=== PATIENT | female | born 1980 | race Caucasian/White ===

== ENCOUNTER → 2020-04-10 | Outpatient (CLI) | payer OTHER ==
[2015-11-04 08:24] VITALS: BP 160/107
[~2020-04-10] MED LIST: CYCL-331 PO; IOHEXOL 240 MG/ML 50ML VIAL. ONE; IOHEXOL 240 MG/ML 50ML VIAL. PO ONE; IOHEXOL 300 MG/ML 75 ML VIAL. IV ONE
--- NOTE | 2020-04-10 12:30 | RAD ---
EXAM: CT Abdomen and Pelvis with IV contrast INDICATION: Reason: LOWER ABD PAIN WITH NAUSEA FOR 1 WEEK, 75MLS OMNI 300 TECHNIQUE: Multi-detector row CT images were acquired from the lung bases through the abdomen and pel vis with the use of IV contrast. Sagittal and coronal images were acquired from the transaxial data. All CT scans performed at this facility utilize dose optimization techniques as appropriate to the ex am, including the following: Automated exposure control and adjustment of the mA and/or KV according to patient size (this includes techniques or standardized protocols for targeted exams where dose is indication/reason for exam). IV CONTRAST: Administered ORAL CONTRAST: Administered COMPARISON: None FINDINGS: LOWER CHEST: Unremarkable LIVER: Unremarkable BILIARY SYSTEM: Gallbladder is unremarkable. Bile ducts are not dilated. PANCREAS: Unremarkable SPLEEN: Unremarkable ADRENALS: Unremarkable KIDNEYS & URETERS: Unremarkable BLADDER: Unremarkable REPRODUCTIVE ORGANS: In the left adnexa is a 5.4 x 5.7 cm mixed fatty, soft tissue noncalcified mass compatible with a benign cystic teratoma. There is a normal-appearing retroflexed uterus. The right ovary is not well seen. GASTROINTESTINAL: The stomach, small bowel, and colon are unremarkable. The appendix is normal. MESENTERY/PERITONEUM/RETROPERITONEUM: Unremarkable VASCULAR: Unremarkable LYMPH NODES: No adenopathy OSSEOUS & SOFT TISSUES: Intraosseous hemangioma at L3 measuring 2 cm is present. IMPRESSION: Nonvisualized right ovary with a small amount of pelvic free fluid but an approximately 6 cm left adn exal mass compatible with a benign cystic teratoma is present. If there is any concern for torsion, u ltrasound could be pursued in further evaluation. Electronically signed by: Brayan Rod MD (04/10/2020 12:28 PM) [id number]
== END ==
LOC: CT 07:39
PROVIDERS: ATTEND Nurse Practitioner Family
DX: R10.30 Lower abdominal pain, unspecified (principal)
CPT/HCPCS: 74177; Q9966; Q9967

== ENCOUNTER 2021-02-10 20:08 | Emergency (ER) | payer OTHER ==
[~2021-02-10] VITALS: Ht 172.7 cm; Wt 136.0 kg
[~2021-02-10 20:08] MED LIST changes: -CYCL-331 PO; +CYCL10TA19 PO; -IOHEXOL 240 MG/ML 50ML VIAL. ONE; -IOHEXOL 240 MG/ML 50ML VIAL. PO ONE; -IOHEXOL 300 MG/ML 75 ML VIAL. IV ONE
--- NOTE | 2021-02-10 20:45 | RAD ---
Exam: Chest one view INDICATION: Short of breath, Covid post TECHNIQUE: Frontal view of the chest Comparisons: None FINDINGS: The cardiomediastinal silhouette and pulmonary vessels are within normal limits. Subtle patchy bibasilar airspace disease. No pleural effusion. IMPRESSION: Subtle bibasilar airspace disease. This may be infectious or inflammatory in etiology. Electronically signed by: Maggie Bruno MD (02/10/2021 8:42 PM) YAYA
[2021-02-10 21:27] VITALS: BP 144/94
--- NOTE | 2021-02-10 21:35 | PHYS DOC ---
Past History Past Medical History: Depression, GERD, Hypertension, Other Past Surgical History: , Other Additional Past Surgical Histo: ablation, partial hysterectomy Alcohol Use: None Drug Use: None General Adult EDM: Chief Complaint: NAUSEA/VOMITING/DIARRHEA HPI: HPI: 40-year-old female presents with vomiting and headache. Patient was diagnosed with COVID-19 4 days ago. She has had body aches, fatigue, nausea, vomiting, an d headache. The headache has been persistent in the last couple of days and nothing seems to make it better. She has been unable to keep down fluids. She did Zofran from her doctor earlier today. It is allowed her to drink a little bit but she still has nausea. She is most concerned about the headache at this time. Review of Systems: Review of Systems: Constitutional: Denies fever or chills. Body aches, fatigue Eyes: Denies change in visual acuity HENT: Denies nasal congestion or sore throat Respiratory: Denies cough or shortness of breath Cardiovascular: Denies chest pain or edema GI: nausea, vomiting. Denies abdominal pain, bloody stools or diarrhea : Denies dysuria Musculoskeletal: Denies back pain or joint pain Integument: Denies rash Neurologic: Headache. Denies focal weakness or sensory changes Endocrine: Denies polyuria or polydipsia Lymphatic: Denies swollen glands Psychiatric: Denies depression or anxiety Allergies: Allergies: Allergies Coded Allergies Type Severity Reaction Last Updated Verified No Known Drug Allergies 02/10/21 No Physical Exam: PE: Constitutional: Well developed, well nourished, no acute distress, non-toxic appearance. [] HENT: Normocephalic, atraumatic, bilateral external ears normal, oropharynx moist, no oral exudates, nose normal. [] Eyes: PERRLA, EOMI, conjunctiva normal, no discharge. [] Neck: Normal range of motion, no tenderness, supple, no stridor. [] Cardiovascular:Heart rate regular rhythm, no murmur [] Lungs & Thorax: Bilateral breath sounds clear to auscultation [] Abdomen: Bowel sounds normal, soft, no tenderness, no masses, no pulsatile masses. [] Skin: Warm, dry, no erythema, no rash. [] Back: No tenderness, no CVA tenderness. [] Extremities: No tenderness, no cyanosis, no clubbing, ROM intact, no edema. [] Neurologic: Alert and oriented X 3, normal motor function, normal sensory function, no focal deficits noted. [] Psychologic: Affect normal, judgement normal, mood normal. [] Current Patient Data: Vital Signs: Vital Signs Date Time Temp Pulse Resp B/P (MAP) Pulse Ox O2 Delivery O2 Flow Rate FiO2 02/10/21 21:27 98.8 97 20 144/94 (111) 98 EKG: EKG: [] Radiology/Procedures: Radiology/Procedures: [] Heart Score: C/O Chest Pain: N/A Risk Factors: Risk Factors: DM, Current or recent (<one month) smoker, HTN, HLP, family history of CAD, obesity. Risk Scores: Score 0 - 3: 2.5% MACE over next 6 weeks - Discharge Home Score 4 - 6: 20.3% MACE over next 6 weeks - Admit for Clinical Observation Score 7 - 10: 72.7% MACE over next 6 weeks - Early Invasive Strategies Course & Med Decision Making: Course & Med Decision Making Pertinent Labs and Imaging studies reviewed. (See chart for details) We will give the patient a liter normal saline and 4 mg of Zofran IV. For her headache I will give her Reglan 10 mg, Toradol 30 mg, 25 mg of Benadryl. The patient's headache has improved. She is stable for discharge at this time. [] Ben Disclaimer: Ben Disclaimer: This electronic medical record was generated, in whole or in part, using a voice recognition dictation system. Departure Departure: Impression: Primary Impression: COVID-19 Additional Impressions: Vomiting Headache Disposition: HOME / SELF CARE / HOMELESS Condition: STABLE Referrals: ROSA MARIA GARNER PAC (PCP) Patient Instructions: Nausea and Vomiting, [id number] Additional Instructions: You have been tested for or diagnosed with COVID-19. It is an infection caused by a new type of coronavirus. COVID-19 will cause cold-like or mild flu symptoms in most. It can cause more severe symptoms like problems breathing in some. There is no treatment for COVID-19. The body will clear the infection over time. Self-care will help to ease discomfort. Steps to Take: Self-Care Rest as needed. Healthy habits may help you feel better. Steps include: Choose healthy foods including fruits and vegetables. Drink water throughout the day. Get plenty of sleep each night. If you smoke, try to quit. It may ease breathing. Avoid alcohol. Keep Others Healthy The virus can spread to others. Droplets are released every time you sneeze or cough. The droplets can get into the mouth, nose, or eyes of people near you and lead to infection. To lower the chances of spreading COVID-19 to others: Stay at home until your doctor has said it is safe to leave. If you tested positive this will mean staying isolated until both of the following are true: At least 7 days have passed since the start of illness. You are free of fever for at least 72 hours without the use of medicine. During this time: - Avoid public areas, events, or transportation. Do not return to work or school until your doctor has said it is safe to do so. - Call ahead if you need to go to a medical center. Let them know you may have COVID-19. It will help them guide you where to go. They may also ask you to wear a facemask when you come to the office. - If you call for emergency medical services, let them know you may have COVID-19. While at home: - Try to avoid close contact with others. Stay about 6 feet away. - If possible, spend most of your time in a separate room from others. - Use a face mask if you will be in close contact with others such as sharing a room or vehicle. - Have someone wipe down common surfaces in the home. Use household hoop bender tank every day on areas like doorknobs, counters, or sinks. - Cough or sneeze into a tissue. Throw the tissue away right after use. If a tissue is not available, cough or sneeze into your elbow. - Wash your hands often. Wash them after sneezing or coughing. Use soap and water and wash for at least 20 seconds. Alcohol based hand truck car and bus cleaner can be used if soap and water is not available. - Do not prepare food for others. Avoid sharing personal items like forks, spoons, or toothbrushes. - Avoid close contact with pets while you are sick. There is no evidence of the virus passing to pets. This is a safety step until more is known about this virus. Isolation can be frustrating. Social interaction can help. Keep in touch with friends and family through phone and tech options. You can still interact with others in your home, just keep a safe distance of about 6 feet. Follow-up: Your doctors office will check in with you to see if there are any changes in your health. You may be asked to keep track of symptoms to share with them. They will also let you know when you are clear to be in public again. Problems to Look Out For: Contact your doctor if your recovery is not going as you expect. Get emergency care if you have problems such as: - Trouble breathing - Nonstop chest pain or pressure - Changes in awareness, confusion, or problems waking - Lips or face have bluish color - Worsening of symptoms If you think you have an emergency, call for emergency medical services right away. As taken from [facility] AMY LOCKE DO Feb 10, 2021 21:35
[2021-02-10] MEDS ORDERED: AZITHROMYCIN 250 MG TABLET. PO ONE (21:45)
[2021-02-10] MEDS ORDERED: diphenhydrAMINE 50 MG/ML VIAL IVP ONE (21:45)
[2021-02-10] MEDS ORDERED: METOCLOPRAMIDE HCL 10 MG/2 ML VIAL. IVP ONE (21:45)
[2021-02-10] MEDS ORDERED: ONDANSETRON PF 4 MG/2 ML VIAL. IVP ONE (21:45)
[2021-02-10] MEDS ORDERED: IV NORMAL SALINE 1,000ML 1,000 ML IV ONE (21:45)
[2021-02-10] MEDS ORDERED: KETOROLAC 30 MG/ML VIAL. IVP ONE (21:45)
[2021-02-10] MEDS ORDERED: AZIT250T6 PO (22:37)
== END 2021-02-10 22:37 | disposition home or self-care (01) ==
LOC: ER 20:08
DX: U07.1 COVID-19 (principal); R11.2 Nausea with vomiting, unspecified; I10 Essential (primary) hypertension; K21.9 Gastro-esophageal reflux disease without esophagitis; Z98.890 Other specified postprocedural states
CPT/HCPCS: 71045; 96361; 96374; 96375; 99284; J1200; J1885; J2405; J2765; J7030

== ENCOUNTER 2021-02-13 08:20 | Emergency (ER) | payer OTHER ==
[~2021-02-13] VITALS: Ht 172.7 cm; Wt 141.0 kg
[~2021-02-13 08:20] MED LIST changes: +AZIT250T6 PO
[2021-02-13 08:30] VITALS: BP 149/81
--- NOTE | 2021-02-13 08:46 | PHYS DOC ---
Past History Past Medical History: Depression, GERD, Hypertension, Other Past Surgical History: , Other Additional Past Surgical Histo: ablation, partial hysterectomy Alcohol Use: None Drug Use: None Adult General Chief Complaint Chief Complaint: MULTIPLE COMPLAINTS [facility] HPI Patient is a [40-year-old female presenting for COVID symptoms and migraine. Reports she was diagnosed with COVID 3 days prior after numerous other family members had tested positive. Reports typical upper respiratory symptoms without fever. Also reports to migraine which is an acute on chronic issue, typically these resolve with OTC medications but reports for past 48 hours her migraine has not been relieved with [id number] medications. She feels her current COVID-19 infection is exacerbating her migraine. No syncope, fever greater than 100.4, chest pain, ripping or tearing in his chest, wheezing, productive cough, nausea vomiting or diarrhea Review of Systems Review of Systems Fourteen body systems of review of systems have been reviewed. See HPI for pertinent positives and negative responses, other shaffer all other systems are negative, non-pertinent or non-contributory Allergies Allergies Allergies Coded Allergies Type Severity Reaction Last Updated Verified No Known Drug Allergies 02/10/21 No Physical Exam Physical Exam General: Appears well, non toxic, and comfortable Skin: Warm, dry. Normal for ethnicity. HEENT: Atraumatic. PERRLA. Rhinorrhea and congestion. Nasal turbinates boggy b/l. Moist mucous membranes. Uvula midline. Maintaining secretions. No phonation changes. Neck: Trachea midline. Normal ROM. No stridor. No meningeal signs or nuchal rigidity Respiratory: Normal WOB. CTAB w/o w/r/r. No tachypnea. Cardiovascular: Regular rate and rhythm. Normal peripheral perfusion. Abdomen: Soft. Non tender. No distension. Back: Normal ROM. Musculoskeletal: No swelling or deformity. Neuro: Alert and oriented x 4. MAEE. Lymph: No cervical LAD. Psych: Depressed affect and mood Current Patient Data Vital Signs Vital Signs Date Time Temp Pulse Resp B/P (MAP) Pulse Ox O2 Delivery O2 Flow Rate FiO2 02/13/21 08:30 99.3 95 22 149/81 (103) 90 Vital Signs Date Time Temp Pulse Resp B/P (MAP) Pulse Ox O2 Delivery O2 Flow Rate FiO2 02/13/21 08:30 99.3 95 22 149/81 (103) 90 Lab Results Current Medications Medications (Trade) Dose Ordered Sig/Deidre Route PRN Reason Start Time Stop Time Status Last Admin Dose Admin Ketorolac Tromethamine (Toradol Im) 60 mg 1X ONCE IM 02/13/21 09:15 02/13/21 09:16 DC 02/13/21 09:11 Diphenhydramine HCl (Benadryl) 50 mg 1X ONCE IM 02/13/21 09:15 02/13/21 09:16 DC 02/13/21 09:11 Lorazepam (Ativan) 1 mg 1X ONCE PO 02/13/21 09:15 02/13/21 09:16 DC 02/13/21 09:10 Albuterol Sulfate (Ventolin Hfa Inhaler) 2 puff 1X ONCE INH 02/13/21 09:45 02/13/21 09:49 DC 02/13/21 09:51 EKG EKG [] Radiology/Procedures Radiology/Procedures [] Heart Score C/O Chest Pain: No Risk Factors: Risk Factors: DM, Current or recent (<one month) smoker, HTN, HLP, family history of CAD, obesity. Risk Scores: Risk Factors: DM, Current or recent (<one month) smoker, HTN, HLP, family history of CAD, obesity. Course & Med Decision Making Course & Med Decision Making ABCs unremarkable HPI physical exam obtained and nonconcerning for any emergent or surgical issues Patient presenting for classic COVID-19 symptoms in an unvaccinated individual. No indication for further diagnostic work-up in a hemodynamically stable patient. Supportive care practices and continue to self quarantine instructions advised Patient also complaining for migraine which is similar to prior episodes, no thunderclap or concerning signs or symptoms of meningitis. Patient's symptoms improved with provided ER intervention Ultimately, discharged home with continued supportive care and self quarantine instructions as discussed above Dragon Disclaimer Dragon Disclaimer This electronic medical record was generated, in whole or in part, using a voice recognition dictation system. Departure Departure: Impression: Primary Impression: COVID-19 Additional Impression: Migraine Disposition: 01 HOME / SELF CARE / HOMELESS Condition: STABLE Referrals: ROSA MARIA GARNER PAC (PCP) Additional Instructions: As discussed prior to ER departure, your currently being treated with antibiotics for COVID-19 infection. Please discontinue Mucinex and start a daily antihistamine such as Claritin, Zyrtec or other equivalent. He would also benefit from starting a daily intranasal corticosteroid spray such as Flonase. I have also prescribed today and inhaled corticosteroid inhaler that should be used to completion. All of these pulmonary hygiene practices should be coupled with deep breathing exercises and maximizing time spent in standing and/or seated upright position to maximize air excursion. Regarding your migraines, this is likely exacerbation from your underlying infectious disease process. You were given a concoction of IM pain, nausea and anxiety medication that typically helps relieve the acute migraines. Please continue taking appropriate [id number] medications for this as well as other prescribed medications and follow-up with your primary care physician when safe to do so. It was a pleasure to take care of you and I wish you the best going forward Scripts Budesonide (PULMICORT FLEXHALER) 180 Mcg [email or web address] 2 PUFF IH BID for covid pneumonia, #1 INHALER 6 Refills Prov: ASHLEY ESCOBAR DO 02/13/21 Problem Qualifiers ASHLEY ESCOBAR DO Feb 13, 2021 08:46
[2021-02-13] MEDS ORDERED: LORazepam 1 MG TABLET PO ONE (09:15)
[2021-02-13] MEDS ORDERED: KETOROLAC 60 MG/2 ML VIAL. IM ONE (09:15)
[2021-02-13] MEDS ORDERED: diphenhydrAMINE 50 MG/ML VIAL IM ONE (09:15)
[2021-02-13] MEDS ORDERED: BUDE180A IH (09:26)
[2021-02-13] MEDS ORDERED: ALBUTEROL SULFATE 8GM INHALER. INH ONE (09:45)
== END 2021-02-13 09:55 | disposition home or self-care (01) ==
LOC: ER 08:20
DX: U07.1 COVID-19 (principal); G43.909 Migraine, unspecified, not intractable, without status migrainosus; K21.9 Gastro-esophageal reflux disease without esophagitis; I10 Essential (primary) hypertension; F32.9 Major depressive disorder, single episode, unspecified
CPT/HCPCS: 94640; 96372; 99284; J1200; J1885; 94664